=== PATIENT | female | born 1985 | race Two or more races ===

== ENCOUNTER 2016-07-13 06:32 | Emergency (ER) | payer MEDICAID ==
[~2016-07-13] VITALS: Ht 154.9 cm; Wt 77.1 kg
--- NOTE | 2016-07-13 06:41 | Emergency Room Report ---
History of Present Illness General Chief Complaint: Vaginal Source: Patient Present Illness HPI Patient is a 30-year-old female who presented after having increased vaginal bleeding. Patient was noted to be one month after a delivery of a premature baby at 22 weeks. The patient reported having appendectomy laparoscopically at the same time. A surgery took place approximately June 04. Patient reported having crampy abdominal pain and the some increased clotting. The patient denied any fever. She had not been vomiting. She reported having some diarrhea. Allergies: Coded Allergies: No Known Allergies (Unverified , 07/13/16) Patient History Past Medical History: see triage record Past Surgical History: appy Reviewed Nursing Documentation: PMH: Agreed, PSxH: Agreed Nursing Documentation-PMH Past Medical History: No Stated History Review of Systems All Other Systems: negative except mentioned in HPI Physical Exam Vital Signs Date Time Temp Pulse Resp B/P Pulse Ox O2 Delivery O2 Flow Rate FiO2 07/13/16 06:31 97.5 84 16 130/81 98 Room Air Sp02 EP Interpretation: reviewed, normal General Appearance: normal inspection, well appearing, no apparent distress, alert, GCS 15 Head: atraumatic ENT: normal ENT inspection, hearing grossly normal, normal voice Neck: normal inspection, full range of motion, supple, no bony tend Respiratory: normal inspection, lungs clear, normal breath sounds, no respiratory distress, no retraction, no wheezing Cardiovascular #1: regular rate, rhythm, no edema Gastrointestinal: normal inspection, normal bowel sounds, non tender, soft, no guarding, no hernia, tenderness Genitourinary: no CVA tenderness, os closed, uterus normal Musculoskeletal: normal inspection, back normal, normal range of motion Neurologic: normal inspection, alert, oriented x3, responsive, 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 Differential diagnoses included ischemic bowel, appendicitis, perforated viscus, abdominal aortic aneurysm, inferior myocardial infarction, viral gastroenteritis Because of complexity of patient's case laboratory testing and imaging studies were ordered. The patient was noted to have exam with some suprapubic tenderness. Bleeding is consistent with patient having a first menstruation after .The patient was noted to have adequate hemoglobin and platelet counts. The patient was placed on supervisor marble was noted to have normal sinus rhythm with normal heart rate without PVCs or ectopy rate in the 80s. Patient was noted to have Negative test. Patient was advised to followup with her [employer] [facility]. The patient did not appear to have any retained products on pelvic ultrasound. The patient is advised to return if she began having increased dizziness lightheadedness palpitations or other concerns. Labs Test 07/13/16 06:46 07/13/16 06:50 Urine Color Red Urine Appearance Turbid Urine pH 6.5 (4.5-8.0) Urine Specific [place] 1.010 (1.005-1.035) Urine Protein 3+ (NEGATIVE) Urine Glucose (UA) Negative (NEGATIVE) Urine Ketones Negative (NEGATIVE) Urine Occult Blood 5+ (NEGATIVE) Urine Nitrite Negative (NEGATIVE) Urine Bilirubin Negative (NEGATIVE) Urine Urobilinogen Normal MG/DL (0.0-1.0) Urine Leukocyte Esterase 2+ (NEGATIVE) Urine RBC Tntc /HPF (0 - 2) Urine WBC 5-10 /HPF (0 - 2) Urine Squamous Epithelial Cells Few /LPF (NONE/OCC) Urine Bacteria Few /HPF (NONE) White Blood Count 6.7 K/UL (4.8-10.8) Red Blood Count 5.36 M/UL (4.20-5.40) Hemoglobin 12.7 G/DL (12.0-16.0) Hematocrit 40.3 % (37.0-47.0) Mean Corpuscular Volume 75 FL (80-99) Mean Corpuscular Hemoglobin 23.8 PG (27.0-31.0) Mean Corpuscular Hemoglobin Concent 31.6 G/DL (32.0-36.0) Red Cell Distribution Width 14.9 % (11.6-14.8) Platelet Count 264 K/UL (150-450) Mean Platelet Volume 7.8 FL (6.5-10.1) Neutrophils (%) (Auto) 58.9 % (45.0-75.0) Lymphocytes (%) (Auto) 33.0 % (20.0-45.0) Monocytes (%) (Auto) 5.1 % (1.0-10.0) Eosinophils (%) (Auto) 2.4 % (0.0-3.0) Basophils (%) (Auto) 0.6 % (0.0-2.0) Sodium Level 141 mEQ/L (135-145) Potassium Level 3.9 mEQ/L (3.4-4.9) Chloride Level 102 mEQ/L (98-107) Carbon Dioxide Level 22 mEQ/L (20-30) Anion Gap 17 (5-15) Blood Urea Nitrogen 8 mg/dL (7-23) Creatinine 0.6 mg/dL (0.5-0.9) Estimat Glomerular Filtration Rate > 60 mL/min (>60) Glucose Level 143 mg/dL (74-106) Calcium Level 9.2 mg/dL (8.6-10.2) Total Bilirubin < 0.2 mg/dL (0.0-1.2) Aspartate Amino Transf (AST/SGOT) 34 U/L (5-40) Alanine Aminotransferase (ALT/SGPT) 48 U/L (3-33) Alkaline Phosphatase 91 U/L (35-104) Total Protein 6.9 g/dL (6.6-8.7) Albumin 4.0 g/dL (3.5-5.2) Globulin 2.9 g/dL Albumin/Globulin Ratio 1.3 (1.0-2.7) Lipase 40 U/L (< 60) Last Vital Signs Date Time Temp Pulse Resp B/P Pulse Ox O2 Delivery O2 Flow Rate FiO2 07/13/16 06:31 97.5 84 16 130/81 98 Room Air Status: improved Disposition: HOME, SELF-CARE Condition: Stable Scripts Medroxyprogesterone Acet* (PROVERA*) 10 Mg Tablet 10 MG ORAL DAILY, #10 TAB 0 Refills Prov: Shawn Hopkins 07/13/16 Ferrous Sulfate* (FERROUS SULFATE*) 325 Mg Tablet 325 MG ORAL DAILY, #30 TAB 0 Refills Prov: Shawn Hopkins 07/13/16 Shawn Hopkins Jul 13, 2016 06:41
[2016-07-13] MEDS ORDERED: Mylanta II UD 30ml ORAL ONE (06:45)
[2016-07-13 07:09] LABS: APPEARANCE,URINE TURBID; KETONES,URINE NEGATIVE (NEGATIVE); NITRITE,URINE NEGATIVE (NEGATIVE); PH,URINE 6.5 (4.5-8.0); PROTEIN,URINE 3+ (NEGATIVE); UROBILINOGEN,URINE NORMAL MG/DL (0.0-1.0)
[2016-07-13 07:16] LABS: LEUKOCYTE ESTERASE ,URINE 2+ (NEGATIVE)
[2016-07-13 07:17] LABS: BACTERIA,URINE FEW /HPF; RBC,URINE TNTC /HPF (0 - 2); SQUAMOUS EPITHELIAL CELL,UR FEW /LPF (NONE/OCC)
[2016-07-13 07:17] LABS: PROTHROMBIN TIME 9.9 SEC (9.30-11.50)
[2016-07-13 07:20] VITALS: BP 132/77
[2016-07-13 07:20] LABS: ALANINE AMINOTRANSFERASE 48 U/L (3-33); ALBUMIN/GLOBULIN RATIO 1.3 (1.0-2.7); ANION GAP 17 (5-15); ASPARTATE AMINO TRANSFERASE 34 U/L (5-40); CALCIUM 9.2 mg/dL (8.6-10.2); CARBON DIOXIDE 22 mEQ/L (20-30); CHLORIDE 102 mEQ/L (98-107); CREATININE 0.6 mg/dL (0.5-0.9); GLOMERULAR FILTRATION RATE > 60 mL/min (>60); HEMOLYSIS 8; LIPASE 40 U/L (< 60); POTASSIUM 3.9 mEQ/L (3.4-4.9); SODIUM 141 mEQ/L (135-145); TOTAL PROTEIN 6.9 g/dL (6.6-8.7)
[2016-07-13 07:25] LABS: BASOPHILS % (AUTO) 0.6 % (0.0-2.0); EOSINOPHILS % (AUTO) 2.4 % (0.0-3.0); MEAN CORPUSCULAR HEMOGLOBIN 23.8 PG (27.0-31.0); MEAN CORPUSCULAR HGB CONC 31.6 G/DL (32.0-36.0); MEAN CORPUSCULAR VOLUME 75 FL (80-99); MEAN PLATELET VOLUME 7.8 FL (6.5-10.1); MONOCYTES % (AUTO) 5.1 % (1.0-10.0); NEUTROPHILS % (AUTO) 58.9 % (45.0-75.0); PLATELET COUNT 264 K/UL (150-450); RED BLOOD COUNT 5.36 M/UL (4.20-5.40); RED CELL DISTRIBUTION WIDTH 14.9 % (11.6-14.8); WHITE BLOOD COUNT 6.7 K/UL (4.8-10.8)
[2016-07-13 09:19] VITALS: BP 118/59
[2016-07-13] MEDS ORDERED: FERROUS SULFAT325 MG ORAL (10:10)
[2016-07-13] MEDS ORDERED: PROVERA10 MG ORAL (10:15)
[2016-07-13 10:55] VITALS: BP 115/73
--- NOTE | 2016-07-13 12:22 | Diagnostic Imaging Report ---
Indication: PAIN, bleeding Technique: Transabdominal and transvaginal images Comparison: None Findings: Uterus measures 9.2 cm length by 5.2 cm AP. Endometrium measures 9 mm thick. Is homogeneous. There is slight heterogeneity to the myometrium without focal abnormalities. Small amount of free cul-de-sac fluid is demonstrated. The right ovary measures 3.4 cm length and the left ovary measures 4.2 cm length. No adnexal mass demonstrated Impression: No findings to suggest retained bodies of conception or other complication of recent delivery Nonspecific heterogeneity to the myometrium, could indicate fibroid changes Small amount of free cul-de-sac fluid, presumed physiologic
== END 2016-07-13 10:55 | disposition home or self-care (01) ==
LOC: EDBD 06:32 → EMR 06:55
DX: N92.0 Excessive and frequent menstruation with regular cycle (principal); R19.7 Diarrhea, unspecified; Z90.89 Acquired absence of other organs
CPT/HCPCS: 36415; 76830; 76856; 80053; 81003; 81025; 83690; 85025; 85610; 85730; 96360; 96374; 99284; J2405